=== PATIENT | female | born 1990 | race Caucasian/White ===

== ENCOUNTER 2018-07-01 14:55 | Emergency (ER) | payer BC, SELFPAY ==
[2018-07-01 15:11] VITALS: BP 128/84; PULSE 88; RESP 18; TEMP 36.9; O2SAT 98
--- NOTE | 2018-07-01 15:54 | W.ED.GENAD ---
Discharge Plan Disposition Patient Disposition: HOME Condition: Improving Discharge Details Chief Complaint: Headache Clinical Impression: Migraine Primary Care Provider: Miriam Krueger ED Provider: Gila Doshi Home Meds and New Rx's Prescriptions: Continued sumatriptan succinate [Imitrex] 100 mg tablet 100 mg PO PRN Qty: 10 RF: 6 pregabalin [Lyrica] 75 mg capsule 75 mg PO BID Qty: 60 RF: 3 dextroamphetamine-amphetamine [Adderall] 20 MG tablet 30 mg PO DAILY RF: 0 LOPRESSOR ER 200 mg PO DAILY RF: 0 venlafaxine [Effexor XR] 150 MG capsule,extended release 24hr 225 mg PO DAILY RF: 0 promethazine 50 MG tablet 50 mg PO Q6H PRN Qty: 30 RF: 0 ropinirole [Requip] 0.25 MG tablet 0.5 tab PO DAILY RF: 0 buspirone 15 MG tablet 15 mg PO BID RF: 0 Discharge Instructions Instructions: Migraine Headache (ED) Additional Instructions: Drink plenty of fluids and get plenty of rest. Follow-up with your neurologist in 1-2 weeks for reevaluation. Return immediately to the emergency department any worsening or new concerning symptoms. Discharge Data Discharge Physician: Gila Doshi Medical Decision Making 28-year-old female with a history of migraines who presented with migraine headache since 830 this morning. States feels like her usual headache. Positive vomiting and photophobia. Vitals within normal limits. Patient appears nontoxic. No focal deficits. Patient states Reglan, Phenergan or morphine work best for her migraine. Will place an IV, bolus IV fluids, Reglan, Benadryl and Toradol and will reassess. 1720 --patient states her headache improved somewhat but is now returning. We will give another liter IV fluids and a dose of morphine and reassess. 1800 --pt feels much better and is requesting to go home. Instructed to increase fluids, rest and follow-up with neurologist for reevaluation. She has an appointment with her neurologist next month. Patient was instructed to return here immediately with any worsening symptoms. Patient states she has plenty of her medications at home. HPI General Mode of arrival: ambulatory. Date/Time Provider Initiated Documentation: 07/01/18 15:16. Limitations to Documentation: no limitations. Information obtained by: patient. HPI Narrative: Patient is a 28-year-old female with a history of migraines who presents with a migraine headache since 830 this morning. Patient states the headache feels sharp, constant and throbbing and is her whole head. Patient states he feels consistent with her usual migraine. States she has been having nausea and vomiting all day long. Also admits to light sensitivity. Patient states she was diagnosed with migraines at age 3 and has had near daily headaches since then. States she occasionally has migraines which require her to come to the emergency department usually once yearly. Patient states she is followed by Dr. Mtz for her migraines. Patient states she took Phenergan at 1030 this morning without relief. Related Data Home Medications Medication Instructions Recorded Confirmed dextroamphetamine-amphetamine 30 mg PO DAILY tab-cap 10/24/14 06/07/17 [Adderall] Lopressor Er 200 mg PO DAILY 01/16/16 06/07/17 venlafaxine [Effexor XR] 225 mg PO DAILY tab-cap 09/07/16 06/07/17 promethazine 50 mg PO Q6H PRN #30 tab-cap 03/01/17 buspirone 15 mg PO BID 06/07/17 06/07/17 ropinirole [Requip] 0.5 tab PO DAILY 06/07/17 06/07/17 pregabalin 75 mg capsule 75 mg PO BID #60 tab-cap 06/15/18 06/15/18 sumatriptan 100 mg tablet 100 mg PO PRN #10 tab-cap 06/15/18 06/15/18 Previous Rx's Medication Instructions Recorded pregabalin 75 mg capsule 75 mg PO BID #60 tab-cap 06/15/18 sumatriptan 100 mg tablet 100 mg PO PRN #10 tab-cap 06/15/18 Allergies Allergy/AdvReac Type Severity Reaction Status Date / Time No Known Allergies Allergy Unverified 07/01/18 15:14 General Stated Complaint: Headache CLARISA: 3 Review of Systems Review of Systems All systems reviewed & are unremarkable except as noted in HPI and below Constitutional Reports as per HPI, Denies chills, Denies fever(s) and Reports headache(s) Eyes Denies blurry vision ENT Denies dizziness, Reports headache(s), Denies sore throat and Denies throat swelling Cardiovascular Denies chest pain and Denies dyspnea Respiratory Denies dyspnea Gastrointestinal Denies abdominal pain, Denies diarrhea and Reports vomiting Genitourinary Denies hematuria and Denies dysuria Musculoskeletal Denies back pain and Denies numbness Integumentary/Breasts Denies lesions and Denies rash Neurologic Denies dizziness, Reports headache(s) and Denies numbness Allergic/Immunologic Denies throat swelling [facility] Medical History ADHD (attention deficit hyperactivity disorder) Anxiety BMI 34.0-34.9,adult Chronic migraine Contraception Insomnia Migraine with aura and without status migrainosus, not intractable Tachycardia Tobacco use Family History Father No problems noted. Sister Anxiety Social History Smoking/Tobacco Use Status: Current every day alcohol intake: current alcohol intake frequency: holidays/special occasions only substance use type: does not use Exam Const General: cooperative, healthy appearing and no acute distress [facility] Head: normal to inspection Ears: hearing grossly normal bilaterally General nose exam: external nose normal Face and sinus: normal facial exam Mouth: oral mucosae normal Eyes General: appearance normal, both eyes and all related structures Pupils: PERRL EOM: EOM intact bilaterally Neck Neck: normal visual inspection and No submandibular swelling Lymphatic: no lymphadenopathy noted Chest Chest: normal inspection of the chest and no tenderness Resp Effort & Inspection: normal respiratory effort and able to speak in complete sentences Auscultation: clear to auscultation bilaterally Cardio Rate: regular rate Rhythm: regular rhythm GI Inspection: normal to inspection Palpation: soft, not firm, not rigid and nontender Auscultation: normal bowel sounds Skin General skin exam: no rashes or lesions noted Neuro General: alert, awake and oriented x3 Cranial Nerves: CN's II-XI intact bilaterally Cognition: normal cognition Speech: speech normal Motor: muscle tone normal throughout and strength 5/5 throughout Sensory Exam: no sensory deficits noted Extrem General: normal to inspection, full ROM, normal capillary refill and no edema Psych Appearance: grossly normal Mental Status: mental status grossly normal Speech and Movement: speech and movement normal Affect: normal affect Course Vital Signs Temperature 98.4 F 07/01/18 15:11 Pulse 88 07/01/18 15:11 Respiratory Rate 18 07/01/18 15:11 Blood Pressure 128/84 07/01/18 15:11 Pulse Oximetry 98 07/01/18 15:11 Temperature 98.4 F 07/01/18 15:11 Temperature Source Skin 07/01/18 15:11 Pulse 88 07/01/18 15:11 Respiratory Rate 18 07/01/18 15:11 Blood Pressure 128/84 07/01/18 15:11 Blood Pressure Position Sitting 07/01/18 15:11 Pulse Oximetry 98 07/01/18 15:11 Oxygen Delivery Method Room Air 07/01/18 15:11 Oxygen Flow Rate 0 07/01/18 15:11 Pain Level 9 07/01/18 15:11
[2018-07-01] MEDS: diphenhydrAMINE 50 MG/ML VIAL 25 MG IVP (16:10)
[2018-07-01] MEDS: Ketorolac 30 MG/ML VIAL IVP (16:10)
[2018-07-01] MEDS: Metoclopramide 10 MG/2 ML VIAL IVP (16:11)
[2018-07-01] MEDS: Normal Saline 1,000 ML 1000 ML IV ×2 (16:12→17:43)
--- NOTE | 2018-07-01 16:56 | NUR.NOTE ---
pt. resting with eyes closed, RR WNL, pt. states her pain is better, still hurts.
[2018-07-01 17:49] VITALS: BP 110/65; PULSE 78; RESP 18; O2SAT 100
[2018-07-01 18:06] VITALS: BP 103/68; PULSE 78; RESP 16; O2SAT 100
== END 2018-07-01 18:18 | disposition home or self-care (01) ==
PROVIDERS: Emergency Provider Physician Assistant; PCP Nurse Practitioner Family
DX: G43.909 Migraine, unspecified, not intractable, without status migrainosus (principal)
CPT/HCPCS: 81025; 96361; 96374; 96375; 99284; J1200; J1885; J2765

== ENCOUNTER 2018-12-27 14:15 | Outpatient (REF) | payer BC, SELFPAY ==
[2018-12-27 21:15] LABS: Abs Immature Grans 0.05 k/cumm (0.0-0.09); Absolute Basophil Count 0.04 k/cumm (0.0-0.2); Absolute Eosinophil Count 0.16 k/cumm (0.0-0.7); Absolute Lymphocyte Count 3.08 k/cumm (1.2-3.4); Absolute Monocyte Count 1.12 k/cumm (0.11-0.7); Absolute Neutrophil Count 8.87 k/cumm (1.2-6.7); Basophils % 0.3; Eosinophils % 1.2; HCT 45.5 % (36.0-46.0); HGB 15.4 g/dL (12.0-15.5); Immature Grans % 0.4; Lymphocytes % 23.1; Mean Corp. HGB Concentration 33.8 g/dL (32.0-36.0); Mean Corpuscular Volume 91.5 fL (80-95); Mean Platelet Volume 9.4 fL (8.0-11.0); Monocytes % 8.4; Neutrophils % 66.6; Platelet Count 441 x1000/uL (130-400); RBC 4.97 m/cumm (4.00-5.20); RBC Distribution Width 13.9 % (11.7-14.6); White Blood Cell Count 13.32 k/cumm (4.4-10.8)
== END 2018-12-27 14:35 ==
LOC: NCHCN 14:15
PROVIDERS: PCP Nurse Practitioner Family; Visit Provider Nurse Practitioner Family
DX: K30 Functional dyspepsia (principal); D72.829 Elevated white blood cell count, unspecified; J45.20 Mild intermittent asthma, uncomplicated; E23.6 Other disorders of pituitary gland; R00.0 Tachycardia, unspecified; F41.9 Anxiety disorder, unspecified; G43.909 Migraine, unspecified, not intractable, without status migrainosus; E66.9 Obesity, unspecified
CPT/HCPCS: 85025

== ENCOUNTER 2019-04-17 15:41 | Outpatient (REF) | payer BC, SELFPAY ==
[2019-04-17 21:10] LABS: Abs Immature Grans 0.02 k/cumm (0.0-0.09); Absolute Basophil Count 0.01 k/cumm (0.0-0.2); Absolute Eosinophil Count 0.17 k/cumm (0.0-0.7); Absolute Lymphocyte Count 2.62 k/cumm (1.2-3.4); Absolute Monocyte Count 0.75 k/cumm (0.11-0.7); Absolute Neutrophil Count 5.34 k/cumm (1.2-6.7); Basophils % 0.1; Eosinophils % 1.9; HCT 40.9 % (36.0-46.0); HGB 13.6 g/dL (12.0-15.5); Immature Grans % 0.2; Lymphocytes % 29.4; Mean Corp. HGB Concentration 33.3 g/dL (32.0-36.0); Mean Corpuscular Hemoglobin 30.8 pg (27.0-33.0); Mean Corpuscular Volume 92.7 fL (80-95); Mean Platelet Volume 9.6 fL (8.0-11.0); Monocytes % 8.4; Platelet Count 408 x1000/uL (130-400); RBC 4.41 m/cumm (4.00-5.20); RBC Distribution Width 12.9 % (11.7-14.6); White Blood Cell Count 8.91 k/cumm (4.4-10.8)
[2019-04-17 21:49] LABS: ALT 28 U/L (14-59); AST 15 U/L (15-37); Albumin 4.3 g/dL (3.4-5.0); Alkaline Phosphatase 100 U/L (46-116); BUN 10 mg/dL (7-18); Bilirubin, Total 0.3 mg/dL (0.2-1.0); CREATININE 0.75 mg/dL (0.55-1.02); Calcium 9.3 mg/dL (8.5-10.1); Chloride 101 mmol/L (98-107); Glucose 84 mg/dL (70-100); Magnesium 1.9 mg/dL (1.8-2.4); Potassium 4.3 mmol/L (3.5-5.1); Sodium 137 mmol/L (136-145); Total Protein 7.6 g/dL (6.4-8.2); Vitamin B12 700 pg/mL (193-986)
== END 2019-04-17 16:01 ==
LOC: NCHCN 15:41
PROVIDERS: PCP Nurse Practitioner Family; Visit Provider Nurse Practitioner Family
DX: K30 Functional dyspepsia (principal); D72.829 Elevated white blood cell count, unspecified; R00.0 Tachycardia, unspecified; F41.9 Anxiety disorder, unspecified; J45.20 Mild intermittent asthma, uncomplicated; E23.6 Other disorders of pituitary gland; G47.00 Insomnia, unspecified; E66.9 Obesity, unspecified
CPT/HCPCS: 80053; 82607; 83735; 85025

== ENCOUNTER 2020-01-23 19:17 | Outpatient (REF) | payer BC, SELFPAY ==
[2020-01-23 21:43] LABS: Abs Immature Grans 0.07 k/cumm (0.0-0.09); Absolute Basophil Count 0.03 k/cumm (0.0-0.2); Absolute Eosinophil Count 0.19 k/cumm (0.0-0.7); Absolute Lymphocyte Count 2.57 k/cumm (1.2-3.4); Absolute Monocyte Count 1.14 k/cumm (0.11-0.7); Absolute Neutrophil Count 10.77 k/cumm (1.2-6.7); Basophils % 0.2; Eosinophils % 1.3; HCT 39.1 % (36.0-46.0); HGB 12.9 g/dL (12.0-15.5); Immature Grans % 0.5 %; Lymphocytes % 17.4; Mean Corpuscular Hemoglobin 30.6 pg (27.0-33.0); Mean Corpuscular Volume 92.7 fL (80-95); Mean Platelet Volume 9.5 fL (8.0-11.0); Monocytes % 7.7; Neutrophils % 72.9; Platelet Count 411 x1000/uL (130-400); RBC 4.22 m/cumm (4.00-5.20); RBC Distribution Width 14.1 % (11.7-14.6); White Blood Cell Count 14.77 k/cumm (4.4-10.8)
[2020-01-23 22:08] LABS: Lithium 0.75 mmol/L (0.60-1.20)
[2020-01-23 22:24] LABS: Hemoglobin A1C 5.1 % (3.8-5.6)
[2020-01-23 22:31] LABS: ALT 27 U/L (14-59); AST 17 U/L (15-37); Albumin 4.1 g/dL (3.4-5.0); Alkaline Phosphatase 109 U/L (46-116); Anion Gap 11.1 mmol/L (3-11); BUN 15 mg/dL (7-18); Bilirubin, Total 0.4 mg/dL (0.2-1.0); CO2 23.9 mmol/L (21.0-32.0); CREATININE 0.78 mg/dL (0.55-1.02); Calcium 9.3 mg/dL (8.5-10.1); Calculated LDL 128 mg/dL (<100); Chloride 102 mmol/L (98-107); Cholesterol 232 mg/dL (<200); Glucose 87 mg/dL (74-106); HDL Cholesterol 49 mg/dL (40-60); Magnesium 2.5 mg/dL (1.8-2.4); Potassium 4.2 mmol/L (3.5-5.1); Sodium 137 mmol/L (136-145); Total Protein 7.2 g/dL (6.4-8.2); Triglyceride 276 mg/dL (<150); Vitamin B12 439 pg/mL (193-986)
[2020-01-23 23:19] LABS: FREE T4 0.85 ng/dL (0.76-1.46)
[2020-01-25 10:44] LABS: Hepatitis C Ab w Rflx HCV PCR Negative (Negative)
== END 2020-01-23 19:37 ==
LOC: NCHCN 19:17
PROVIDERS: PCP Nurse Practitioner Family; Visit Provider Nurse Practitioner Family
DX: F31.77 Bipolar disorder, in partial remission, most recent episode mixed (principal); F41.9 Anxiety disorder, unspecified; G43.909 Migraine, unspecified, not intractable, without status migrainosus; F17.210 Nicotine dependence, cigarettes, uncomplicated; K30 Functional dyspepsia; D72.829 Elevated white blood cell count, unspecified; Z51.81 Encounter for therapeutic drug level monitoring; J45.20 Mild intermittent asthma, uncomplicated; E23.6 Other disorders of pituitary gland; Z11.59 Encounter for screening for other viral diseases
CPT/HCPCS: 80053; 80061; 86803; 80178; 82607; 83036; 83735; 84439; 84443; 85025

== ENCOUNTER 2020-04-11 13:13 | Outpatient (REF) | payer BC, SELFPAY ==
[2020-04-11 21:17] LABS: TSH 2.09 uIU/mL (0.36-3.74)
[2020-04-11 21:18] LABS: Lithium 0.67 mmol/L (0.60-1.20)
== END 2020-04-11 13:33 ==
LOC: NCHCN 13:13
PROVIDERS: PCP Nurse Practitioner Family; Visit Provider Nurse Practitioner Family
DX: F31.62 Bipolar disorder, current episode mixed, moderate (principal); F51.05 Insomnia due to other mental disorder; F43.10 Post-traumatic stress disorder, unspecified; Z51.81 Encounter for therapeutic drug level monitoring; R79.89 Other specified abnormal findings of blood chemistry
CPT/HCPCS: 80178; 84443

== ENCOUNTER 2021-02-24 13:02 | Outpatient (REF) | payer OTHER, SELFPAY ==
--- NOTE | 2021-02-24 12:15 | PAPFT_PTH ---
PATIENT: Danielle Vera LOC: [facility]#:[id number] AGE/SX: 30/F ROOM: RE02/24/[address]: Miriam Krueger : 1990 BED: DIS: 02/24/2021 SPEC #: [id number] RECD: 02/25/21 12:55 STATUS: [facility] VITAL #: [id number] ESTEVAN: 02/24/21 12:[address]: Miriam Krueger DEPT: [facility] Cytology RECD BY: Steph Jaramillo Tissues: 1 - CX/ENDOCX FOR PAP SMEARS Procedures: PAP THIN PREP/UVM Screening HPV DNA PROBE Comments: [id number] (CHLAMYDIA/GC)
[2021-02-24 21:25] LABS: Abs Immature Grans 0.01 10^3/uL (0.0-0.06); Absolute Basophil Count 0.04 10^3/uL (0.0-0.2); Absolute Eosinophil Count 0.15 10^3/uL (0.0-0.7); Absolute Lymphocyte Count 2.45 10^3/uL (1.2-3.4); Absolute Monocyte Count 0.51 10^3/uL (0.1-0.8); Absolute Neutrophil Count 3.07 10^3/uL (1.2-6.7); Basophils % 0.6; Eosinophils % 2.4; HCT 39.8 % (36.0-46.0); HGB 13.2 g/dL (11.2-15.7); Immature Grans % 0.2; Lymphocytes % 39.3; MCH 30.3 pg (27.0-33.0); MCHC 33.2 % (32.0-36.0); MCV 91.3 fL (80-95); Monocytes % 8.2; Neutrophils % 49.3; Nucleated RBC 0 %; Platelet Count 350 10^3/uL (130-400); RBC 4.36 10^6/uL (3.93-5.22); RDW 13.3 % (11.7-14.6); RDW-SD 45.1 fL; WBC 6.23 10^3/uL (4.4-10.8)
[2021-02-24 21:38] LABS: Hemoglobin A1C 5.5 % (<5.7)
[2021-02-24 21:48] LABS: Magnesium 2.1 mg/dL (1.8-2.4); TSH (W/Ref FT4) 0.53 uIU/mL (0.36-3.74)
[2021-02-26 10:14] LABS: HIV-1/2 Ag & Ab Screen Negative (Negative)
[2021-02-26 11:16] LABS: Syphilis Serology (RPR) Negative (Negative)
[2021-02-26 15:22] LABS: Chlamydia Result Negative (Negative); GC Result Negative (Negative)
== END 2021-02-24 13:03 | disposition home or self-care (01) ==
LOC: NCHCN 13:02
PROVIDERS: PCP Nurse Practitioner Family; Visit Provider Nurse Practitioner Family
DX: Z00.00 Encounter for general adult medical examination without abnormal findings (principal); Z12.4 Encounter for screening for malignant neoplasm of cervix; Z01.419 Encounter for gynecological examination (general) (routine) without abnormal findings; Z11.51 Encounter for screening for human papillomavirus (HPV); E78.5 Hyperlipidemia, unspecified; D72.829 Elevated white blood cell count, unspecified; K30 Functional dyspepsia; F31.62 Bipolar disorder, current episode mixed, moderate; E66.9 Obesity, unspecified; E23.6 Other disorders of pituitary gland; Z11.4 Encounter for screening for human immunodeficiency virus [HIV]
CPT/HCPCS: 87389; 87491; 87591; 88142; 83036; 83735; 84443; 85025; 86592; 87624

== ENCOUNTER 2021-06-04 05:06 | Emergency (ER) | payer OTHER, SELFPAY ==
[2021-06-04] VITALS (20 sets, daily range): BP systolic 102–139; BP diastolic 49–93; PULSE 69–200; RESP 18–42; TEMP 36.6; O2SAT 96–100
--- NOTE | 2021-06-04 05:15 | RT.EKG_ITS ---
APPROVED REPORT Exam: Resting ECG Reason for Exam: sob Patient Location: E HR:95 bpm ECG Measurements Heart Rate 95 AXIS HI [id number] P [id number] QRSd 89 QRS 72 QT 370 T 44 QTc 466 Conclusion Atrial flutter...A-rate 238 Physician: Sinus tach, no stemi, no delta wave, no significant st elevation or depression
--- NOTE | 2021-06-04 05:16 | W.ED.GENAD ---
Discharge Plan Disposition Patient Disposition: HOME Condition: Good Discharge Details Clinical Impression: Tachycardia, Pneumonia, Cough Primary Care Provider: Miriam Krueger ED Provider: Williams Santana Home Meds and New Rx's Prescriptions: New benzonatate 100 mg capsule 100 mg PO TID Qty: 30 RF: 0 doxycycline hyclate 100 mg tablet 100 mg PO BID Qty: 20 RF: 0 Continued magnesium chloride 64 mg tablet extended release 128 mg PO BID RF: 0 lithium carbonate 300 mg capsule 300 mg PO QHS RF: 0 levothyroxine [Synthroid] 25 mcg tablet 12.5 mcg PO DAILY RF: 0 quetiapine [Seroquel] 400 mg tablet 400 mg PO QHS RF: 0 promethazine 50 mg tablet 50 mg PO Q6H PRN Qty: 30 RF: 3 lithium carbonate 450 mg tablet extended release 1,350 mg PO DAILY RF: 0 dextroamphetamine-amphetamine [Adderall] 20 MG tablet 30 mg PO DAILY RF: 0 venlafaxine [Effexor XR] 150 mg capsule,extended release 24hr 225 mg PO DAILY RF: 0 LOPRESSOR ER 300 mg PO DAILY RF: 0 sumatriptan succinate [Imitrex] 100 mg tablet 100 mg PO PRN Qty: 10 RF: 6 Emgality Pen 120 mg/mL pen injector 120 mg subcut ONCE Qty: 1 RF: 11 buspirone 15 MG tablet 15 mg PO BID RF: 0 Discharge Instructions Instructions: Pneumonia (ED), Acute Cough (ED) Additional Instructions: At this time your chest x-ray does show evidence of early mild pneumonia. Your Covid test is negative. Your flu test was negative. Please take the antibiotic as directed. Addition sent to your pharmacy on [facility]. Please also take the cough medication as prescribed. It has also been sent to your pharmacy. If you notice any worsening of your symptoms, or any new symptoms such as vomiting, diarrhea, fever, chills, shortness of breath, chest pain, numbness, weakness, or fainting , please return immediately to the emergency department for reevaluation. Please follow up with your primary care provider as soon as possible for reassessment and reevaluation. As always, it was a pleasure participating in your medical care today. 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 Patient states that for the last 2 to 3 days she has had mild cough, fever, chills, runny nose and congestion. Over the last 12 to 24 hours she has had increased difficulty breathing, shortness of breath, mild chest pain. She has taken her inhalers but this is not improved her symptoms. She has missed her last few doses of her beta-ana. She has received the Covid vaccine. She denies any recent long trips, surgeries or procedures. She denies any estrogen use. No personal or family history of blood clots. No other complaints at this time. No other modifying factors. Physical exam demonstrates a notably anxious appearing female, notably tachypneic with excellent oxygen saturation and clear lungs. There is perhaps a very minimal wheeze the left lower lung field, however otherwise appears notably unremarkable S rotation. I do suspect that the patient has a viral upper respiratory infection subsequently causing the cough, fever, and congestion he had perhaps exacerbating her illness related to asthma. However with the patient's tachycardia and chest pain cardiac etiology and PE are also differential. As she is low risk we will get a D-dimer, will rehydrate, give breathing treatments, evaluate for concerning cardiac etiologies, check for Covid, monitor closely and reassess. 7:21 AM Patient's laboratory work-up has returned, patient's troponin is normal, mild white count at 13. D-dimer is normal, electrolytes normal, mild anion gap. TSH is slightly elevated but free T4 is normal. Covid test and flu test are both negative. Chest x-ray shows evidence concerning for mild early pneumonia. Patient's cough is improved with cough suppressant. Patient is feeling better. Patient's heart rate has remained elevated but she did not take her 300 mg of Lopressor this morning. She states that elevated heart rate is very normal for her she misses her medication. We will give her her morning dose now. With the D-dimer negative, patient not on any exogenous estrogen, her symptoms appear consistent with PE. Patient tachycardia is chronic and not acute (patient states her normal ranges 120-160), blood pressure notably stable. Patient will be discharged home with doxycycline and Tessalon Perles. I have extensively reviewed the treatment plan and discharge instructions with the patient. I have addressed all patient concerns at this time. The patient was made aware of what symptoms to monitor for that would warrant a return to the emergency department. Discussed the plan with the patient, they demonstrate verbal understanding and agreement with our assessment and plan at this time. The documentation in this chart was dictated using [employer] dictation software. Please excuse any dictation errors. FINDINGS: Lungs: Slightly heterogeneous pulmonary attenuation may reflect overlying soft tissues, atelectasis, pneumonia or a combination. CT could be performed as needed for more accurate characterization. Pleural spaces: Unremarkable. No pleural effusion. No pneumothorax. Heart/Mediastinum: Unremarkable. No cardiomegaly. Bones/joints: Unremarkable. IMPRESSION: Slightly heterogeneous pulmonary attenuation may reflect overlying soft tissues, atelectasis, pneumonia or a combination. CT could be performed as needed for more accurate characterization. Thank you for allowing us to participate in the care of your patient. Dictated and Authenticated by: Gil Cardenas MD 06/04/2021 7:00 AM Eastern Time ([place] & [place]) HPI General Date/Time Provider Initiated Documentation: 06/04/21 05:07. 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 Patient states that for the last 2 to 3 days she has had mild cough, fever, chills, runny nose and congestion. Over the last 12 to 24 hours she has had increased difficulty breathing, shortness of breath, mild chest pain. She has taken her inhalers but this is not improved her symptoms. She has missed her last few doses of her beta-ana. She has received the Covid vaccine. She denies any recent long trips, surgeries or procedures. She denies any estrogen use. No personal or family history of blood clots. No other complaints at this time. No other modifying factors. Related Data Home Medications Medication Instructions Recorded Confirmed dextroamphetamine-amphetamine 30 mg PO DAILY tab-cap 10/24/14 06/04/21 [Adderall] buspirone 15 mg PO BID 06/07/17 06/04/21 LOPRESSOR ER 300 mg PO DAILY 08/15/18 06/04/21 magnesium chloride 64 mg 128 mg PO BID tab 08/15/18 06/04/21 tablet,extended release venlafaxine 150 mg 225 mg PO DAILY tab-cap 08/15/18 06/04/21 capsule,extended release 24 hr levothyroxine 25 mcg tablet 12.5 mcg PO DAILY tab 03/21/20 06/04/21 lithium carbonate 300 mg capsule 300 mg PO QHS 03/21/20 12/02/20 quetiapine 400 mg tablet 400 mg PO QHS tab 03/21/20 06/04/21 lithium carbonate 450 mg 1,350 mg PO DAILY tab 12/02/20 12/02/20 tablet,extended release sumatriptan succinate 100 mg tablet 100 mg PO PRN #10 tab-cap 01/21/21 06/04/21 promethazine 50 mg tablet 50 mg PO Q6H PRN #30 tab-cap 02/10/21 06/04/21 galcanezumab-gnlm 120 mg/mL 120 mg SUBCUT ONCE #1 ml 04/17/21 06/04/21 subcutaneous pen injector benzonatate 100 mg PO TID #30 cap 06/04/21 doxycycline hyclate 100 mg PO BID #20 tab 06/04/21 Previous Rx's Medication Instructions Recorded sumatriptan succinate 100 mg tablet 100 mg PO PRN #10 tab-cap 01/21/21 promethazine 50 mg tablet 50 mg PO Q6H PRN #30 tab-cap 02/10/21 galcanezumab-gnlm 120 mg/mL 120 mg SUBCUT ONCE #1 ml 04/17/21 subcutaneous pen injector benzonatate 100 mg PO TID #30 cap 06/04/21 doxycycline hyclate 100 mg PO BID #20 tab 06/04/21 Allergies Allergy/AdvReac Type Severity Reaction Status Date / Time No Known Allergies Allergy Unverified 02/10/21 09:39 General Stated Complaint: SOB CLARISA: 3 Review of Systems All systems reviewed & are unremarkable except as noted in HPI and below PFSH Active Problem List PTSD (post-traumatic stress disorder) (Acute) Anxiety (Acute 11/06/15) Attention deficit hyperactivity disorder (ADHD), predominantly inattentive type (Acute 11/06/15) BMI 34.0-34.9,adult (Acute 11/06/15) Chronic migraine (Acute 01/22/15) Encounter for contraceptive management, unspecified (Acute 11/06/15) Insomnia, unspecified (Acute 11/06/15) Migraine headache with aura (Acute 01/22/15) Migraine headache without aura (Acute 01/22/15) Tachycardia (Acute 11/06/15) Medical History ADHD (attention deficit hyperactivity disorder) managed by PCP. Anxiety Bipolar disorder BMI 34.0-34.9,adult wt secondary to Depo Provera. Chronic migraine Contraception Not a candidate for Estrogen containing OCPs. Gained wt on Depo Provera. BTB on Norethindrone. Intoleranct of Mirena. 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 Migraine with aura and without status migrainosus, not intractable Tachycardia Tobacco use Family History Father No problems noted. Sister Anxiety Social History Smoking/Tobacco Use Status: Current every day Smoking risk assessment performed?: Yes Alcohol Intake: current Alcohol Intake frequency: holidays/special occasions only Drug use: Never Substance use type: does not use Do you feel safe in your relationship?: Yes Exam Narrative Exam Narrative: 1.Const: Well-nourished, Well-developed, appearing stated age 2.Eyes: PERRL, no conjunctival injection, and symmetrical lids. 3.ENT: Atraumatic external nose and ears. Moist MM. Neck: Symmetric, trachea midline, No thyromegaly. 4.CVS: +S1/S2, No murmurs or gallops. Peripheral pulses 2+ and equal in all extremities. Brisk capillary refill in all extremities. 5.RESP: No tachypnea however she otherwise demonstrate unlabored respiratory effort. Clear to auscultation bilaterally. No wheezes rales or rhonchi 6.GI: Soft, Nontender/Nondistended, No hepatosplenomegaly. No guarding or rebound. 7.MSK: Normocephalic/Atraumatic, Extremities w/o deformity or ttp No cyanosis or clubbing, Normal movement of all extremities 8.Skin: Warm, Dry. No rashes or lesions. 9.Neuro: care mgr II-XII grossly intact. Sensation grossly intact, no focal neurologic deficits. 10.Psych: (AAO) x3. Notably anxious Course Vital Signs Vital signs: Vital Signs Temperature 36.6 C 06/04/21 05:11 Pulse 130 H 06/04/21 05:11 Respiratory Rate 20 06/04/21 05:11 Blood Pressure 136/93 H 06/04/21 05:11 Pulse Oximetry 99 06/04/21 05:11 Temperature 36.6 C 06/04/21 05:11 Temperature Source Tympanic 06/04/21 05:11 Pulse 130 H 06/04/21 05:11 Respiratory Rate 20 06/04/21 05:11 Blood Pressure 136/93 H 06/04/21 05:11 Blood Pressure Position Sitting 06/04/21 05:11 Pulse Oximetry 99 06/04/21 05:11 Oxygen Delivery Method Room Air 06/04/21 05:11 Oxygen Flow Rate 0 06/04/21 05:11 Pain Level 4 06/04/21 05:11
[2021-06-04] MEDS: Albuterol/Ipratropium 3 ML UPD VIAL 6 ML UPD (05:55)
[2021-06-04] MEDS: LORazepam 2 MG/ML VIAL 0.5 MG IVP (05:55)
[2021-06-04] MEDS: Normal Saline 1,000 ML 1000 ML IV (05:56)
[2021-06-04 05:58] LABS: Abs Immature Grans 0.06 10^3/uL (0.0-0.06); Absolute Eosinophil Count 0.13 10^3/uL (0.0-0.7); Absolute Monocyte Count 0.82 10^3/uL (0.1-0.8); Basophils % 0.5; HCT 41.5 % (36.0-46.0); HGB 14.2 g/dL (11.2-15.7); Immature Grans % 0.5; Lymphocytes % 23.5; MCH 30.7 pg (27.0-33.0); MCHC 34.2 % (32.0-36.0); MCV 89.6 fL (80-95); MPV 9.2 fL (8.0-11.0); Monocytes % 6.2; Neutrophils % 68.3; Nucleated RBC 0 %; Platelet Count 398 10^3/uL (130-400); RBC 4.63 10^6/uL (3.93-5.22); RDW 13.3 % (11.7-14.6); RDW-SD 43.7 fL; WBC 13.18 10^3/uL (4.4-10.8)
[2021-06-04 05:59] LABS: Absolute Basophil Count 0.07 10^3/uL (0.0-0.2)
[2021-06-04 06:21] LABS: ALT 23 U/L (14-59); AST 8 U/L (15-37); Albumin 4.2 g/dL (3.4-5.0); Alkaline Phosphatase 134 U/L (46-116); Anion Gap 14.8 mmol/L (3-11); BUN 13 mg/dL (7-18); Bilirubin, Total 0.3 mg/dL (0.2-1.0); CO2 22.2 mmol/L (21.0-32.0); CREATININE 0.9 mg/dL (0.55-1.02); Calcium 9.6 mg/dL (8.5-10.1); Chloride 103 mmol/L (98-107); Glucose 111 mg/dL (74-106); Lipase 94 U/L (73-393); Sodium 140 mmol/L (136-145); Total Protein 8.3 g/dL (6.4-8.2)
[2021-06-04 06:22] LABS: Troponin I < 0.05 ng/mL (<0.06)
[2021-06-04 06:28] LABS: D-Dimer 291 ng/mlFEU (<500)
--- NOTE | 2021-06-04 06:30 | DI.RAD_ITS ---
Exam(s) XR PORTABLE CHEST AP EXAM: XR PORTABLE CHEST AP CLINICAL HISTORY: cough, sob TECHNIQUE: COMPARISON: No exams were available for comparison FINDINGS: Portable AP chest at 0650 hours. Lungs appear grossly clear, however there is some obscuration of th e diaphragm on the. No prior films available comparison. PA and lateral chest suggested for further evaluation to evaluate the left lower lobe and exclude consolidation. No pleural effusion. Cardiac size within limits. IMPRESSION: Obscuration of diaphragm on left, PA and lateral chest suggested for further evaluation. RADIATION DOSE DELIVERED: Total DLP
[2021-06-04 06:37] LABS: FREE T4 0.85 ng/dL (0.76-1.46)
[2021-06-04 06:38] LABS: COVID-19 PCR Negative (Negative)
[2021-06-04] MEDS: Ondansetron 4 MG/2 ML VIAL IVP (06:38)
--- NOTE | 2021-06-04 07:00 | DI.VRAD_ITS ---
PROCEDURE INFORMATION: Exam: XR Chest Exam date and time: 06/04/2021 6:31 AM Age: 31 years old Clinical indication: Cough and shortness of breath; Patient HX: Cough, SOB TECHNIQUE: Imaging protocol: XR of the chest. Views: 1 view. COMPARISON: No relevant prior studies available. FINDINGS: Lungs: Slightly heterogeneous pulmonary attenuation may reflect overlying soft tissues, atelectasis, pneumonia or a combination. CT could be performed as needed for more accurate characterization. Pleural spaces: Unremarkable. No pleural effusion. No pneumothorax. Heart/Mediastinum: Unremarkable. No cardiomegaly. Bones/joints: Unremarkable. IMPRESSION: Slightly heterogeneous pulmonary attenuation may reflect overlying soft tissues, atelectasis, pneumonia or a combination. CT could be performed as needed for more accurate characterization. Dictated and Authenticated by: Gil Cardenas MD. Ordering:ZACHARY Kramer MD
[2021-06-04] MEDS: Benzonatate 100 MG CAP PO (07:03)
[2021-06-04] MEDS: Metoprolol CR 50 MG TABCR 300 MG PO (07:04)
== END 2021-06-04 07:53 | disposition home or self-care (01) ==
PROVIDERS: Emergency Provider Student in an Organized Health Care Education/Training Program; PCP Nurse Practitioner Family
DX: J18.9 Pneumonia, unspecified organism (principal); R00.0 Tachycardia, unspecified; R05.1 Acute cough; F17.210 Nicotine dependence, cigarettes, uncomplicated
CPT/HCPCS: 80053; 83690; 87449; 87635; 93005; 96361; 96374; 96375; 99284; 71045; 84439; 84443; 84484; 85025; 85379; 93010; J2060; J2405; J7620

== ENCOUNTER 2021-09-01 15:11 | Outpatient (REF) | payer OTHER, SELFPAY ==
[2021-09-01 21:09] LABS: TSH (W/Ref FT4) 3.59 uIU/mL (0.36-3.74)
== END 2021-09-01 15:12 | disposition home or self-care (01) ==
LOC: NCHCN 15:11
PROVIDERS: PCP Nurse Practitioner Family; Visit Provider Nurse Practitioner Family
DX: E04.9 Nontoxic goiter, unspecified (principal); E78.5 Hyperlipidemia, unspecified
CPT/HCPCS: 84443

== ENCOUNTER 2021-12-30 04:38 | Emergency (ER) | payer OTHER, SELFPAY ==
--- NOTE | 2021-12-30 04:41 | W.ED.GENAD ---
Discharge Plan Disposition Patient Disposition: HOME Condition: Improving Discharge Details Clinical Impression: Headache, migraine Primary Care Provider: Miriam Krueger ED Provider: Virgilio [facility] Meds and New Rx's Prescriptions: Continued magnesium chloride 64 mg tablet extended release 128 mg PO BID lithium carbonate 300 mg capsule 300 mg PO QHS levothyroxine [Synthroid] 25 mcg tablet 12.5 mcg PO DAILY quetiapine [Seroquel] 400 mg tablet 400 mg PO QHS promethazine 50 mg tablet 50 mg PO Q6H PRN Qty: 30 3RF Rx Instructions: Take PRN for nausea and headaches dextroamphetamine-amphetamine [Adderall] 20 MG tablet 30 mg PO DAILY venlafaxine [Effexor XR] 150 mg capsule,extended release 24hr 225 mg PO DAILY LOPRESSOR ER 300 mg PO DAILY Label Comments: 11/03/16 per pt. takes 300 mg qd. Emgality Pen 120 mg/mL pen injector 120 mg subcut ONCE Qty: 1 11RF buspirone 15 MG tablet 15 mg PO BID Label Comments: 11/30/17 PER PT. TAKES 30-45 MG QD. CANNOT REMEMBER. Ubrelvy 100 mg tablet 1 tab PO BID PRN (Reason: Migraine Headache) Discharge Instructions Instructions: General Headache (ED) Additional Instructions: Home to rest for today. Drink plenty of fluids. Resume previous medications. Follow-up with primary care end of week if not improved. Return to ED for new or worsening headache, neurologic change, persistent vomiting, difficulty breathing, other concerns. Medical Decision Making Patient presenting with migraine headache and associated nausea and vomiting. Headache no different than previous migraines and no neurologic symptoms. Nausea and vomiting has been persistent. COVID-positive a few weeks ago and recurrent fever yesterday. Could not concern regarding meningitis. She looks anxious but does have history of ADD, bipolar, restless leg. We will treat with fluids, Compazine, ketorolac and check basic labs. Laboratory studies look okay. Patient reports no significant improvement with Toradol and Compazine. Patient and mother report that typically requires morphine if headache is bad enough to make her come to ED. Patient given 4 mg of morphine and on reevaluation reports improved headache and requesting discharge home. Follow-up with primary care as needed. Return precautions provided. Lab Data Lab results reviewed: Yes I reviewed the patient's lab results. HPI General Mode of arrival: ambulatory. Date/Time Provider Initiated Documentation: 12/30/21 04:41. Limitations to Documentation: no limitations. Information obtained by: patient and RN notes reviewed. HPI Narrative: Patient presents to ED with complaint of migraine headache. Patient reports headache similar to previous migraines. Not responding to home medications. Has nausea and vomiting which has been persistent and is not like typical migraines. Denies any abdominal pain. Was COVID-positive a few weeks ago. Recurrent fever and not feeling well yesterday. No cough, sore throat, shortness of breath, chest pain currently. No neurologic changes. Feels hot and sweaty on and off but no fever since yesterday. Related Data Home Medications Medication Instructions Recorded Confirmed dextroamphetamine-amphetamine 20 30 mg PO DAILY 10/24/14 12/30/21 mg tablet (Adderall) buspirone 15 mg tablet 15 mg PO BID 06/07/17 12/30/21 LOPRESSOR ER 300 mg PO DAILY 08/15/18 12/30/21 magnesium chloride 64 mg 128 mg PO BID 08/15/18 12/30/21 tablet,extended release venlafaxine 150 mg 225 mg PO DAILY 08/15/18 12/30/21 capsule,extended release 24 hr (Effexor XR) levothyroxine 25 mcg tablet 12.5 mcg PO DAILY 03/21/20 12/30/21 (Synthroid) lithium carbonate 300 mg capsule 300 mg PO QHS 03/21/20 12/30/21 quetiapine 400 mg tablet (Seroquel) 400 mg PO QHS 03/21/20 12/30/21 promethazine 50 mg tablet 50 mg PO Q6H PRN #30 tab-caps 02/10/21 12/30/21 galcanezumab-gnlm 120 mg/mL 120 mg subcut ONCE #1 mL 04/17/21 12/30/21 subcutaneous pen injector (Emgality Pen) ubrogepant 100 mg tablet (Ubrelvy) 1 tab PO BID PRN Migraine Headache 12/30/21 12/30/21 Previous Rx's Medication Instructions Recorded promethazine 50 mg tablet 50 mg PO Q6H PRN #30 tab-caps 02/10/21 galcanezumab-gnlm 120 mg/mL 120 mg subcut ONCE #1 mL 04/17/21 subcutaneous pen injector (Emgality Pen) Allergies Allergy/AdvReac Type Severity Reaction Status Date / Time No Known Allergies Allergy Unverified 12/30/21 04:48 General CLARISA: 3 Review of Systems Narrative: 11/29 Review of Systems completed and is negative except as stated above in HPI (Systems reviewed: Const, Resp, CV, GI, Neuro) PFSH All Active Problems (Updated 12/30/21 @ 06:53 by Virgilio Richard MD) Headache, migraine (Chronic) Pneumonia (Acute) Cough (Acute) PTSD (post-traumatic stress disorder) (Acute) Anxiety (Acute 11/06/15) Attention deficit hyperactivity disorder (ADHD), predominantly inattentive type (Acute 11/06/15) BMI 34.0-34.9,adult (Acute 11/06/15) Chronic migraine (Acute 01/22/15) Encounter for contraceptive management, unspecified (Acute 11/06/15) Insomnia, unspecified (Acute 11/06/15) Migraine headache with aura (Acute 01/22/15) Migraine headache without aura (Acute 01/22/15) Tachycardia (Acute 11/06/15) Medical History (Updated 12/30/21 @ 06:53 by Virgilio Richard MD) ADHD (attention deficit hyperactivity disorder) managed by PCP. Anxiety Bipolar disorder BMI 34.0-34.9,adult wt secondary to Depo Provera. Chronic migraine Contraception Not a candidate for Estrogen containing OCPs. Gained wt on Depo Provera. BTB on Norethindrone. Intoleranct of Mirena. 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 Tobacco use Family History Father No problems noted. Sister Anxiety Social History Smoking/Tobacco Use Status: Current-Occasional Tobacco Type: cigarettes Smoking risk assessment performed?: Yes Alcohol Intake: current Alcohol Intake frequency: holidays/special occasions only Drug use: Never Substance use type: does not use Do you feel safe at home: Yes Do you feel safe in your relationship?: Yes Exam Narrative Exam Narrative: Const: Obese female in NAD but anxious HEENT: NC/AT. Normal facial exam. Eyes: Normal conjunctiva and sclera. PERRL and EOMI Neck: Supple. Trachea midline. Lungs: Normal respiratory effort. Lungs are clear. Cor: RRR without murmur/gallop. Good radial pulses. GI: Soft. ND Neuro: A+O x 3. Normal speech, mentation, gait. Cranial nerves II - XII grossly intact. No gross motor or sensory deficit. Ext: No C/C/E. Skin: Warm and dry without rash.
[2021-12-30 04:42] VITALS: BP 110/78; PULSE 92; RESP 22; TEMP 37.1; O2SAT 99
[2021-12-30 05:12] LABS: Abs Immature Grans 0.02 10^3/uL (0.0-0.06); Absolute Basophil Count 0.04 10^3/uL (0.0-0.2); Absolute Eosinophil Count 0.02 10^3/uL (0.0-0.7); Absolute Lymphocyte Count 0.57 10^3/uL (1.2-3.4); Absolute Monocyte Count 0.87 10^3/uL (0.1-0.8); Basophils % 0.7; Eosinophils % 0.3; HGB 13.4 g/dL (11.2-15.7); Immature Grans % 0.3; Lymphocytes % 9.6; MCH 29.8 pg (27.0-33.0); MCHC 33.5 % (32.0-36.0); MCV 89 fL (80-95); MPV 9.2 fL (8.0-11.0); Monocytes % 14.7; Neutrophils % 74.4; Platelet Count 352 10^3/uL (130-400); RDW 13.2 % (11.7-14.6); RDW-SD 42.8 fL; WBC 5.92 10^3/uL (4.4-10.8)
[2021-12-30 05:25] LABS: ALT 26 U/L (14-59); AST 34 U/L (15-37); Albumin 4.4 g/dL (3.4-5.0); Alkaline Phosphatase 106 U/L (46-116); Anion Gap 14.3 mmol/L (3-11); BUN 14 mg/dL (7-18); Bilirubin, Total 0.3 mg/dL (0.2-1.0); CO2 22.7 mmol/L (21.0-32.0); CREATININE 0.8 mg/dL (0.55-1.02); Calcium 9.5 mg/dL (8.5-10.1); Chloride 99 mmol/L (98-107); Glucose 129 mg/dL (74-106); Potassium 3.7 mmol/L (3.5-5.1); Sodium 136 mmol/L (136-145); Total Protein 8.4 g/dL (6.4-8.2)
[2021-12-30] MEDS: Ketorolac 30 MG/ML VIAL IVP (05:28)
[2021-12-30] MEDS: Normal Saline 1,000 ML 1000 ML IV (05:28)
[2021-12-30] MEDS: Prochlorperazine 10 MG/2 ML VIAL IVP (05:28)
[2021-12-30] MEDS: MORPHine 4 MG/ML SYR IVP (06:16)
[2021-12-30 07:14] VITALS: BP 125/76; PULSE 106; TEMP 38.1; O2SAT 100
[2021-12-30 07:23] VITALS: BP 125/76; PULSE 106; RESP 16; TEMP 38.1; O2SAT 100
== END 2021-12-30 07:20 | disposition home or self-care (01) ==
PROVIDERS: Emergency Provider Emergency Medicine; PCP Nurse Practitioner Family
DX: G43.909 Migraine, unspecified, not intractable, without status migrainosus (principal); Z86.16 Personal history of COVID-19
CPT/HCPCS: 80053; 96361; 96374; 96375; 99284; 85025; 99283; J0780; J1885; J2270

== ENCOUNTER 2023-01-04 06:49 | Emergency (ER) | payer OTHER, SELFPAY ==
[2023-01-04] VITALS (20 sets, daily range): BP systolic 91–127; BP diastolic 35–96; PULSE 84–126; RESP 4–28; TEMP 37.1; O2SAT 88–99
--- NOTE | 2023-01-04 07:23 | ED.GENADUL_ITS ---
Discharge Plan Disposition Patient Disposition: Home Condition: Stable Discharge Details Clinical Impression: Cough Primary Care Provider: Miriam Krueger ED Provider: Sb Morton Home Meds and New Rx's Prescriptions: New benzonatate 200 mg capsule 200 mg PO TID PRN (Reason: cough) Qty: 9 0RF prednisone 20 mg tablet 60 mg PO DAILY 4 Days Qty: 12 0RF doxycycline hyclate 100 mg tablet 100 mg PO BID Qty: 14 0RF Continued magnesium chloride 64 mg tablet extended release 128 mg PO BID levothyroxine [Synthroid] 25 mcg tablet 50 mcg PO DAILY quetiapine [Seroquel] 400 mg tablet 800 mg PO QHS promethazine 50 mg tablet 50 mg PO Q6H PRN Qty: 30 3RF Rx Instructions: Take PRN for nausea and headaches dextroamphetamine-amphetamine [Adderall] 20 MG tablet 30 mg PO DAILY venlafaxine [Effexor XR] 150 mg capsule,extended release 24hr 75 mg PO DAILY LOPRESSOR ER 300 mg PO DAILY Patient Comments: 11/03/16 per pt. takes 300 mg qd. buspirone 15 MG tablet 15 mg PO BID Patient Comments: 11/30/17 PER PT. TAKES 30-45 MG QD. CANNOT REMEMBER. sumatriptan succinate 100 mg tablet See Rx Instructions .ROUTE .COMPLEX PRN Rx Instructions: Take 1 tab at the onset of a migraine, can repeat in 2 hours, max of 2 tabs in 24 hours. Do not exceed 2 days per week prazosin 1 mg capsule 3 mg PO .QHS Patient Comments: 1 1 capsule by mouth at bedtime for nightmares. can increase to two capsule if tolerated. omeprazole 40 mg capsule,delayed release(DR/EC) 40 mg PO DAILY Patient Comments: TAKE ONE CAPSULE BY MOUTH EVERY DAY lamotrigine 25 mg tablet 100 mg PO DAILY Patient Comments: 2 tabs once a day buspirone 10 mg tablet 10 mg PO DAILY Vyepti 100 mg/mL Solution 300 mg IV .Q3 MONTHS albuterol sulfate 90 mcg/actuation HFA aerosol inhaler 2 puff INHALATION PRN PRN Discharge Instructions Instructions: Acute Cough (ED) Additional Instructions: continue to use your inhalers as needed follow up with your primary care provider within 1 week especially if symptoms continue if you feel more ill, have severe pain or worsening shortness of breath return to the emergency department Discharge Data Discharge Date/Time-TO BE ENTERED AT DEPARTURE: 01/04/23 10:36 Medical Decision Making ECG Data Attestation: I personally reviewed and interpreted this ECG (s) as follows: (ST 110, no ST T changes, nl intervals) HPI General Date/Time Provider Initiated Documentation: 01/04/23 07:17 . HPI Narrative: This 32-year-old female patient presents with a chief complaint of asthma exacerbation. Patient tells me that this has been increasing over the past 48 hours in response to cold. It has been unusually cold over the past few days in spite of it being [place]. She has been coughing and she says this makes it feel like she cannot catch her breath. This triggers her anxiety becomes a vicious cycle. She denies fever, congestion, rhinitis, or sore throat. She has no pedal edema or calf pain. Her chest hurts when she coughs and she does describe post-tussive emesis. She is morbidly obese. She has a ProAir inhaler at home that she uses as needed. She has never had to stay overnight in the hospital her to be intubated for her asthma. She presents with her mom in the ED. She is quite anxious in the ED. She tells me that when she has to have an MRI Valium works better than Ativan but she has only had 1 mg of the latter in the past. Note, the patient was seen in the ED 2 days ago for migraine headache. She did have some nausea and vomiting at that time which was somewhat unusual for her. She also reported having had COVID several weeks ago. Related Data Home Medications Medication Instructions Recorded Confirmed dextroamphetamine-amphetamine 20 30 mg PO DAILY 10/24/14 01/04/23 mg tablet (Adderall) buspirone 15 mg tablet 15 mg PO BID 06/07/17 01/04/23 LOPRESSOR ER 300 mg PO DAILY 08/15/18 01/04/23 magnesium chloride 64 mg 128 mg PO BID 08/15/18 01/04/23 tablet,extended release venlafaxine 150 mg 75 mg PO DAILY 08/15/18 01/04/23 capsule,extended release 24 hr (Effexor XR) levothyroxine 25 mcg tablet 50 mcg PO DAILY 03/21/20 01/04/23 (Synthroid) quetiapine 400 mg tablet (Seroquel) 800 mg PO QHS 03/21/20 01/04/23 promethazine 50 mg tablet 50 mg PO Q6H PRN #30 tab-caps 02/10/21 01/04/23 albuterol sulfate 90 mcg/actuation 2 puff inhalation PRN PRN 01/04/23 01/04/23 aerosol inhaler benzonatate 200 mg capsule 200 mg PO TID PRN cough #9 caps 01/04/23 buspirone 10 mg tablet 10 mg PO DAILY 01/04/23 01/04/23 doxycycline hyclate 100 mg tablet 100 mg PO BID #14 tabs 01/04/23 eptinezumab-jjmr 100 mg/mL 300 mg IV .Q3 MONTHS 01/04/23 01/04/23 intravenous solution (Vyepti) lamotrigine 25 mg tablet 100 mg PO DAILY 01/04/23 01/04/23 omeprazole 40 mg capsule,delayed 40 mg PO DAILY 01/04/23 01/04/23 release prazosin 1 mg capsule 3 mg PO .QHS 01/04/23 01/04/23 prednisone 20 mg tablet 60 mg PO DAILY 4 days #12 tabs 01/04/23 sumatriptan succinate 100 mg tablet See Rx Instructions .Route 01/04/23 01/04/23 .COMPLEX PRN Previous Rx's Medication Instructions Recorded promethazine 50 mg tablet 50 mg PO Q6H PRN #30 tab-caps 02/10/21 benzonatate 200 mg capsule 200 mg PO TID PRN cough #9 caps 01/04/23 doxycycline hyclate 100 mg tablet 100 mg PO BID #14 tabs 01/04/23 prednisone 20 mg tablet 60 mg PO DAILY 4 days #12 tabs 01/04/23 Allergies Allergy/AdvReac Type Severity Reaction Status Date / Time No Known Allergies Allergy Unverified 01/04/23 06:56 General Stated Complaint: RespSymp CLARISA: 3 Review of Systems Constitutional Constitutional: Denies chills, Denies fever(s), Denies headache(s) and Denies weakness Eyes Eyes: Denies diplopia and Reports other (no redness) ENT Ears, Nose, Mouth, and Throat: Denies otalgia, Denies headache(s), Denies nasal congestion, Denies nasal discharge, Denies neck pain and Denies sore throat Cardiovascular Cardiovascular: Denies chest pain, Denies palpitations and Reports dyspnea Respiratory Respiratory: Reports cough, Reports dyspnea and Reports wheezing Gastrointestinal Gastrointestinal: Denies abdominal pain, Denies diarrhea, Denies nausea and Reports vomiting (post tussive) Genitourinary Genitourinary: Denies dysuria Musculoskeletal Musculoskeletal: Denies myalgias, Denies muscle weakness, Denies neck pain, Denies numbness and Reports other (edema) Integumentary/Breasts Skin/Breast: Denies change in pigmentation and Denies rash Neurologic Neurologic: Denies headache(s), Denies numbness and Denies weakness Endocrine Endocrine: Denies palpitations Allergic/Immunologic Allergic/Immunologic: Reports wheezing PFSH All Active Problems (Updated 01/04/23 @ 10:22 by Sb Morton MD) Pneumonia (Acute) Cough (Acute) PTSD (post-traumatic stress disorder) (Acute) Anxiety (Acute 11/06/15) Attention deficit hyperactivity disorder (ADHD), predominantly inattentive type (Acute 11/06/15) BMI 34.0-34.9,adult (Acute 11/06/15) Chronic migraine (Acute 01/22/15) Encounter for contraceptive management, unspecified (Acute 11/06/15) Insomnia, unspecified (Acute 11/06/15) Migraine headache with aura (Acute 01/22/15) Migraine headache without aura (Acute 01/22/15) Tachycardia (Acute 11/06/15) Medical History (Updated 01/04/23 @ 10:22 by Sb Morton MD) ADHD (attention deficit hyperactivity disorder) managed by PCP. Anxiety Bipolar disorder BMI 34.0-34.9,adult wt secondary to Depo Provera. Chronic migraine Contraception Not a candidate for Estrogen containing OCPs. Gained wt on Depo Provera. BTB on Norethindrone. Intoleranct of Mirena. 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 Tobacco use Family History Father No problems noted. Sister Anxiety Social History Smoking/Tobacco Use Status: Current-Occasional Tobacco Type: cigarettes Smoking risk assessment performed?: Yes Alcohol Intake: current Alcohol Intake frequency: holidays/special occasions only Drug use: Never Substance use type: does not use Do you feel safe at home: Yes Do you feel safe in your relationship?: Yes Exam Const General: no acute distress, well developed, well groomed and not in acute distress Nutritional Appearance: well nourished Orientation: alert and oriented x3 HENMT Head: normocephalic and atraumatic Ears: external ears normal Mouth: oropharynx normal and moist mucous membranes Throat: posterior oropharynx normal Eyes Conjunctivae: conjunctivae normal Neck Neck: full ROM and supple Chest Chest: normal inspection of the chest Resp Effort & Inspection: tachypneic Auscultation: wheezes (minor but exacerbated by cough) Cardio Rate: regular rate Rhythm: regular rhythm Heart Sounds: no murmurs and no rubs GI Inspection: normal to inspection Palpation: soft, nontender and other (non distended) Auscultation: normal bowel sounds Skin General skin exam: no rashes or lesions noted and other (pink, warm, dry) Neuro General: patient alert, patient awake and patient oriented x3 Speech: speech normal Motor: other (CHILDS) Sensory Exam: no sensory deficits noted Extrem General: normal to inspection, full ROM and pedal edema present Psych Mental Status: mental status grossly normal Speech and Movement: speech and movement normal Affect: normal affect Course Vital Signs Vital signs: Vital Signs Temperature 37.1 C 01/04/23 06:52 Pulse 126 H 01/04/23 06:52 Respiratory Rate 28 H 01/04/23 06:52 Blood Pressure 126/96 H 01/04/23 06:52 Pulse Oximetry 97 01/04/23 06:52 Temperature 37.1 C 01/04/23 06:52 Temperature Source Temporal Artery Scan 01/04/23 06:52 Pulse 126 H 01/04/23 06:52 Respiratory Rate 28 H 01/04/23 06:52 Respiratory Effort Short of Breath, Labored 01/04/23 07:09 Respiratory Depth Normal 01/04/23 07:09 Blood Pressure 126/96 H 01/04/23 06:52 Blood Pressure Position Sitting 01/04/23 06:52 Pulse Oximetry 97 01/04/23 06:52 Oxygen Delivery Method Room Air 01/04/23 06:52 Oxygen Flow Rate 0 01/04/23 06:52 Pain Level 6 01/04/23 06:52 Sign Out Sign Out Data: Sign Out Comment: 32-year-old morbidly obese patient with multiple medications for migraine prophylaxis and psych. 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 She is her breathing's been picking up the past 2 days due to the cold she is coughing hard enough to initiate off induced emesis. Wheezing with cough. Tachycardia is baseline for her. Getting sublingual Ativan, DuoNeb, prednisone. Chest x-ray and labs pending. Reports having had COVID 19 2 weeks ago. Last updated by Bridgette Stafford MD at 01/04/23 07:58
[2023-01-04] MEDS: predniSONE 20 MG TAB 60 MG PO (07:25)
[2023-01-04] MEDS: LORazepam 1 MG TAB 2 MG PO (07:25)
[2023-01-04] MEDS: Albuterol/Ipratropium 3 ML UPD VIAL UPD (07:26)
--- NOTE | 2023-01-04 07:30 | RT.EKG_ITS ---
APPROVED REPORT Exam: Resting ECG Reason for Exam: SOB, CP with cough Patient Location: E HR:108 bpm ECG Measurements Heart Rate 108 AXIS NH 155 P -7 QRSd 80 QRS 15 QT 326 T 8 QTc 439 Conclusion Sinus tachycardia...rate> 99
[2023-01-04 07:52] LABS: HCT 41.7 % (36.0-46.0); HGB 13.8 g/dL (11.2-15.7); MCH 28.3 pg (27.0-33.0); MCHC 33.1 % (32.0-36.0); MCV 86 fL (80-95); MPV 10.1 fL (8.0-11.0); Platelet Count 330 10^3/uL (130-400); RBC 4.87 10^6/uL (3.93-5.22); RDW 14.6 % (11.7-14.6); RDW-SD 45.1 fL; WBC 15.54 10^3/uL (4.4-10.8)
--- NOTE | 2023-01-04 07:59 | DI.RAD_ITS ---
Exam(s) XR PORTABLE CHEST AP EXAM: XR PORTABLE CHEST AP CLINICAL HISTORY: SOB TECHNIQUE: 2D digital imaging was performed. COMPARISON: 04 June 2021 FINDINGS: Exam is limited by patient body habitus. LUNGS: Clear. No pleural abnormality seen. HEART: Normal size. AORTA: Normal diameter. BONES: Unremarkable for age. Soft tissues: Unremarkable. IMPRESSION: No acute findings. DATA REPOSITORY: RADIATION DOSE DELIVERED:
[2023-01-04 08:12] LABS: Lithium < 0.2 mmol/l (0.6-1.2)
[2023-01-04 08:27] LABS: D-Dimer 421 ng/mlFEU (<500)
[2023-01-04 08:45] LABS: ALT 25 U/L (14-59); AST 16 U/L (15-37); Alkaline Phosphatase 165 U/L (46-116); Anion Gap 15.6 mmol/L (3-11); BUN 10 mg/dL (7-18); Bilirubin, Total 0.4 mg/dL (0.2-1.0); CO2 23.4 mmol/L (21.0-32.0); CREATININE 0.9 mg/dL (0.55-1.02); Calcium 9.7 mg/dL (8.5-10.1); Chloride 100 mmol/L (98-107); Estimated GFR 87.11 (mL/min/1.73m2); Glucose 130 mg/dL (74-106); Potassium 3.8 mmol/L (3.5-5.1); Sodium 139 mmol/L (136-145); TSH 0.81 uIU/mL (0.36-3.74); Total Protein 8.3 g/dL (6.4-8.2)
--- NOTE | 2023-01-04 10:20 | ED.PROG_ITS ---
Date of service: 01/04/23 Time of Service: 10:21 Medical Decision Making xray unremarkable, does have mild increase in anion gap of 15 likely from dehydration, wbc of 15. She feels well and improved after meds, she is speaking in full sentences, has mild apical wheezing. Given her history of reactive airway disease and worsening cough will cover with doxy and start on prednisone, advised to f/u with pcp, return precautions given Sign Out Sign Out Data: Sign Out Comment: 32-year-old morbidly obese patient with multiple medications for migraine prophylaxis and psych. She does have a history of anxiety and col d-induced asthma. She is her breathing's been picking up the past 2 days due to the cold she is coughing hard enough to initiate off induced emesis. Wheezing with cough. Tachycardia is baseline for her. Getting sublingual Ativan, DuoNeb, prednisone. Chest x-ray and labs pending. Reports having had COVID 19 2 weeks ago. Last updated by Bridgette Stafford MD at 01/04/23 07:58 Discharge Plan Disposition Patient Disposition: Home Condition: Stable Discharge Details Clinical Impression: Cough Primary Care Provider: Miriam Krueger ED Provider: Sb Morton Home Meds and New Rx's Prescriptions: New benzonatate 200 mg capsule 200 mg PO TID PRN (Reason: cough) Qty: 9 0RF prednisone 20 mg tablet 60 mg PO DAILY 4 Days Qty: 12 0RF doxycycline hyclate 100 mg tablet 100 mg PO BID Qty: 14 0RF Continued magnesium chloride 64 mg tablet extended release 128 mg PO BID levothyroxine [Synthroid] 25 mcg tablet 50 mcg PO DAILY quetiapine [Seroquel] 400 mg tablet 800 mg PO QHS promethazine 50 mg tablet 50 mg PO Q6H PRN Qty: 30 3RF Rx Instructions: Take PRN for nausea and headaches dextroamphetamine-amphetamine [Adderall] 20 MG tablet 30 mg PO DAILY venlafaxine [Effexor XR] 150 mg capsule,extended release 24hr 75 mg PO DAILY LOPRESSOR ER 300 mg PO DAILY Patient Comments: 11/03/16 per pt. takes 300 mg qd. buspirone 15 MG tablet 15 mg PO BID Patient Comments: 11/30/17 PER PT. TAKES 30-45 MG QD. CANNOT REMEMBER. sumatriptan succinate 100 mg tablet See Rx Instructions .ROUTE .COMPLEX PRN Rx Instructions: Take 1 tab at the onset of a migraine, can repeat in 2 hours, max of 2 tabs in 24 hours. Do not exceed 2 days per week prazosin 1 mg capsule 3 mg PO .QHS Patient Comments: 1 1 capsule by mouth at bedtime for nightmares. can increase to two capsule if tolerated. omeprazole 40 mg capsule,delayed release(DR/EC) 40 mg PO DAILY Patient Comments: TAKE ONE CAPSULE BY MOUTH EVERY DAY lamotrigine 25 mg tablet 100 mg PO DAILY Patient Comments: 2 tabs once a day buspirone 10 mg tablet 10 mg PO DAILY Vyepti 100 mg/mL Solution 300 mg IV .Q3 MONTHS albuterol sulfate 90 mcg/actuation HFA aerosol inhaler 2 puff INHALATION PRN PRN Discharge Instructions Instructions: Acute Cough (ED) Additional Instructions: continue to use your inhalers as needed follow up with your primary care provider within 1 week especially if symptoms continue if you feel more ill, have severe pain or worsening shortness of breath return to the emergency department
== END 2023-01-04 10:36 | disposition home or self-care (01) ==
PROVIDERS: Emergency Medicine; Emergency Provider Emergency Medicine; PCP Nurse Practitioner Family
DX: R05.9 Cough, unspecified (principal); J45.909 Unspecified asthma, uncomplicated
CPT/HCPCS: 36415; 80053; 85027; 93005; 94640; 99284; 71045; 80178; 84443; 85379; 93010; J7512; J7620

== ENCOUNTER 2023-04-16 10:59 | Outpatient (REF) | payer OTHER, SELFPAY ==
[2023-04-16 13:41] LABS: Abs Immature Grans 0.03 10^3/uL (0.0-0.06); Absolute Basophil Count 0.02 10^3/uL (0.0-0.2); Absolute Eosinophil Count 0.03 10^3/uL (0.0-0.7); Absolute Lymphocyte Count 2.15 10^3/uL (1.2-3.4); Absolute Monocyte Count 0.52 10^3/uL (0.1-0.8); Absolute Neutrophil Count 3.46 10^3/uL (1.2-6.7); Basophils % 0.3; Eosinophils % 0.5; HCT 35.1 % (36.0-46.0); HGB 11.4 g/dL (11.2-15.7); Immature Grans % 0.5; Lymphocytes % 34.6; MCH 28.6 pg (27.0-33.0); MCHC 32.5 % (32.0-36.0); MCV 88 fL (80-95); Monocytes % 8.4; Neutrophils % 55.7; Platelet Count 372 10^3/uL (130-400); RBC 3.99 10^6/uL (3.93-5.22); RDW 16.2 % (11.7-14.6); RDW-SD 52.6 fL; WBC 6.21 10^3/uL (4.4-10.8)
[2023-04-16 14:03] LABS: Hemoglobin A1C 5.7 % (<5.7)
[2023-04-16 14:18] LABS: Vitamin D 25 Total 10.8 ng/mL (30-100)
[2023-04-16 14:33] LABS: ALT 23 U/L (14-59); AST 13 U/L (15-37); Albumin 3.9 g/dL (3.4-5.0); Alkaline Phosphatase 133 U/L (46-116); Anion Gap 10.9 mmol/L (3-11); BUN 13 mg/dL (7-18); Bilirubin, Total 0.2 mg/dL (0.2-1.0); CO2 24.1 mmol/L (21.0-32.0); CREATININE 0.8 mg/dL (0.55-1.02); Calcium 9.1 mg/dL (8.5-10.1); Calculated LDL 113 mg/dL (<100); Chloride 102 mmol/L (98-107); Cholesterol 190 mg/dL (<200); Estimated GFR 100.33 (mL/min/1.73m2); Glucose 90 mg/dL (74-106); HDL Cholesterol 48 mg/dL (40-60); Sodium 137 mmol/L (136-145); Total Protein 7.1 g/dL (6.4-8.2); Triglyceride 147 mg/dL (<150); Vitamin B12 455 pg/mL (193-986)
[2023-04-19 13:38] LABS: Total Protein 6.7 g/dL (6.3-8.2)
== END 2023-04-16 11:00 | disposition home or self-care (01) ==
LOC: NCHCN 10:59
PROVIDERS: PCP Nurse Practitioner Family; Visit Provider Nurse Practitioner Family
DX: R79.89 Other specified abnormal findings of blood chemistry (principal); R74.8 Abnormal levels of other serum enzymes; R73.9 Hyperglycemia, unspecified; D72.829 Elevated white blood cell count, unspecified; J45.20 Mild intermittent asthma, uncomplicated; F31.62 Bipolar disorder, current episode mixed, moderate; E66.9 Obesity, unspecified
CPT/HCPCS: 80053; 80061; 82306; 82607; 83036; 83735; 84165; 85025

== ENCOUNTER 2023-08-16 15:22 | Emergency (ER) | payer BC, SELFPAY ==
[2023-08-16 15:28] VITALS: BP 110/82; PULSE 110; RESP 18; TEMP 36.6; O2SAT 98
--- NOTE | 2023-08-16 15:30 | DI.RAD_ITS ---
Exam(s) XR FEMUR RT EXAM: XR FEMUR RT CLINICAL HISTORY: EVAL FB. TECHNIQUE: 2D digital imaging was performed. COMPARISON: No exams were available for comparison FINDINGS: Two views. No evidence of fracture nor dislocation. Bone density normal. No osseous lesions. No radiopaque me tallic foreign body evident. Visualized knee appears unremarkable and no evidence of knee joint effusion. IMPRESSION: No significant osseous findings. DATA REPOSITORY: RADIATION DOSE DELIVERED:
[2023-08-16 16:10] VITALS: BP 143/93; PULSE 109; RESP 16; O2SAT 94
--- NOTE | 2023-08-16 16:10 | ED.GENADUL_ITS ---
HPI General Date/Time Provider Initiated Documentation: 08/16/23 15:43 . Limitations to Documentation: no limitations . Information obtained by: patient . HPI Narrative: 33-year-old female with past medical history of PTSD, migraines, obesity presents for evaluation of right thigh pain. Over a week ago she was bit by her own dog. She states that she was breaking up a fight between her 2 dogs. She was evaluated at urgent care and started on Augmentin. She is concerned that she is still having persistent draining from her leg. No increased redness or swelling. Drainage is pinkish clear. No fever. She is currently on day 4 of Augmentin. Related Data Home Medications Medication Instructions Recorded Confirmed dextroamphetamine-amphetamine 20 30 mg PO DAILY 10/24/14 08/16/23 mg tablet (Adderall) buspirone 15 mg tablet 15 mg PO BID 06/07/17 08/16/23 LOPRESSOR ER 300 mg PO DAILY 08/15/18 08/16/23 magnesium chloride 64 mg 128 mg PO BID 08/15/18 08/16/23 tablet,extended release levothyroxine 25 mcg tablet 50 mcg PO DAILY 03/21/20 08/16/23 (Synthroid) quetiapine 400 mg tablet (Seroquel) 800 mg PO QHS 03/21/20 08/16/23 promethazine 50 mg tablet 50 mg PO Q6H PRN #30 tab-caps 02/10/21 08/16/23 albuterol sulfate 90 mcg/actuation 2 puff inhalation PRN PRN 01/04/23 08/16/23 aerosol inhaler buspirone 10 mg tablet 15 mg PO BID 01/04/23 08/16/23 lamotrigine 25 mg tablet 175 mg PO DAILY 01/04/23 08/16/23 omeprazole 40 mg capsule,delayed 40 mg PO DAILY 01/04/23 08/16/23 release prazosin 1 mg capsule 3 mg PO .QHS 01/04/23 08/16/23 sumatriptan succinate 100 mg tablet See Rx Instructions .Route 01/04/23 08/16/23 .COMPLEX PRN amoxicillin 875 mg-potassium tab 08/16/23 clavulanate 125 mg tablet atogepant 60 mg tablet (Qulipta) 60 mg PO DAILY 08/16/23 08/16/23 semaglutide 0.25 mg or 0.5 mg (2 1 mg subcut QWEEK 08/16/23 08/16/23 mg/3 mL) subcutaneous pen injector (Ozempic) Previous Rx's Medication Instructions Recorded promethazine 50 mg tablet 50 mg PO Q6H PRN #30 tab-caps 02/10/21 Allergies Allergy/AdvReac Type Severity Reaction Status Date / Time No Known Allergies Allergy Unverified 01/04/23 06:56 General Stated Complaint: AnimalBite CLARISA: 3 Exam Narrative Exam Narrative: Review of Systems: All systems reviewed & are unremarkable except as noted in HPI and below Well-developed, no acute distress NCAT PERRL, normal conjunctiva RRR Unlabored respiratory effort Nondistended abdomen Right thigh with 4 x 4 area of ecchymosis, there is a 1 cm wound that is scabbed over and a more lateral 2 cm wound that is open with granulation tissue on palpation this area will drain serosanguineous fluid, not particularly tender to palpation. On bedside ultrasound I am able to see a wound track and possibly a sliver of a small foreign body at the base of this wound No rashes or lesions. no focal neurologic deficits Appropriate mood and affect Course Vital Signs Vital signs: Vital Signs Temperature 36.6 C 08/16/23 15:28 Pulse 110 H 08/16/23 15:28 Respiratory Rate 18 08/16/23 15:28 Blood Pressure 110/82 08/16/23 15:28 Pulse Oximetry 98 08/16/23 15:28 Temperature 36.6 C 08/16/23 15:28 Temperature Source Oral 08/16/23 15:28 Pulse 109 H 08/16/23 16:10 Respiratory Rate 16 08/16/23 16:10 Respiratory Effort Normal 08/16/23 15:44 Blood Pressure 143/93 H 08/16/23 16:10 Blood Pressure Position Sitting 08/16/23 15:28 Pulse Oximetry 94 08/16/23 16:10 Oxygen Delivery Method Room Air 08/16/23 15:28 Oxygen Flow Rate 0 08/16/23 15:28 Medical Decision Making Emergent evaluation of dog bite. Wound is not acute. Is currently on antibiotics. External wound appears to be healing appropriately. She does have a fairly significant wound track and a good amount of drainage from the more lateral bite. I am suspicious that there is retained foreign body, possibly a small piece of tooth that is embedded within the wound. This would not be amenable to foreign body retrieval and that would only cause more damage to the patient. X-ray obtained and there does not appear to be anything on the x-ray. Recommended local wound care, soaks, warm compress, continued antibiotics and strict return precautions advised. Medical Records Medical records reviewed: Yes I reviewed the patient's medical records. Quality:SDOH Health Related Social Needs: No Data to Display PFSH All Active Problems Dog bite of right thigh (Acute) Pneumonia (Acute) Cough (Acute) PTSD (post-traumatic stress disorder) (Acute) Anxiety (Acute 11/06/15) Attention deficit hyperactivity disorder (ADHD), predominantly inattentive type (Acute 11/06/15) BMI 34.0-34.9,adult (Acute 11/06/15) Chronic migraine (Acute 01/22/15) Encounter for contraceptive management, unspecified (Acute 11/06/15) Insomnia, unspecified (Acute 11/06/15) Migraine headache with aura (Acute 01/22/15) Migraine headache without aura (Acute 01/22/15) Tachycardia (Acute 11/06/15) Medical History Bipolar disorder Tobacco use BMI 34.0-34.9,adult wt secondary to Depo Provera. Contraception Not a candidate for Estrogen containing OCPs. Gained wt on Depo Provera. BTB on Norethindrone. Intoleranct of Mirena. Anxiety ADHD (attention deficit hyperactivity disorder) managed by PCP. 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 Family History Father No problems noted. Sister Anxiety Social History Smoking/Tobacco Use Status: Current-Occasional Tobacco Type: cigarettes Smoking risk assessment performed?: Yes Alcohol Intake: current Alcohol Intake frequency: holidays/special occasions only Drug use: Never Substance use type: does not use Do you feel safe at home: Yes Do you feel safe in your relationship?: Yes PAWSS Have you Been Recently Intoxicated or Drunk Within the Last 30 days?: No Have you Ever Experienced Previous Episodes of Alcohol Withdrawal?: No Have you ever Experienced Withdrawal Seizures?: No Have you ever Experienced Delirium Tremens(DT)s?: No Have you ever undergone Alcohol Rehabilitation Treatment (i.e, inpt ot outpatient treatment programs)?: No Have you ever Experienced Blackouts?: No Have you ever Combined Alcohol with other Downers within the last 90 days?: No Have you ever Combined Alcohol with any other Substance of Abuse during the last 90 days?: No Positive Blood Alcohol level on Presentation? [PCS.BAL]: No Evidence of Increased Autonomic Activity (i.e. HR>120, tremor, sweating, agitation, nausea)?: No Result: 0 Discharge Plan Disposition Patient Disposition: Home Discharge Details Clinical Impression: Dog bite of right thigh Primary Care Provider: Miriam Krueger ED Provider: Chayito Batista Home Meds and New Rx's Prescriptions: No Action magnesium chloride 64 mg tablet extended release 128 mg PO BID levothyroxine [Synthroid] 25 mcg tablet 50 mcg PO DAILY quetiapine [Seroquel] 400 mg tablet 800 mg PO QHS promethazine 50 mg tablet 50 mg PO Q6H PRN Qty: 30 3RF Rx Instructions: Take PRN for nausea and headaches dextroamphetamine-amphetamine [Adderall] 20 MG tablet 30 mg PO DAILY LOPRESSOR ER 300 mg PO DAILY Patient Comments: 11/03/16 per pt. takes 300 mg qd. buspirone 15 MG tablet 15 mg PO BID Patient Comments: 11/30/17 PER PT. TAKES 30-45 MG QD. CANNOT REMEMBER. sumatriptan succinate 100 mg tablet See Rx Instructions .ROUTE .COMPLEX PRN Rx Instructions: Take 1 tab at the onset of a migraine, can repeat in 2 hours, max of 2 tabs in 24 hours. Do not exceed 2 days per week prazosin 1 mg capsule 3 mg PO .QHS Patient Comments: 1 1 capsule by mouth at bedtime for nightmares. can increase to two capsule if tolerated. omeprazole 40 mg capsule,delayed release(DR/EC) 40 mg PO DAILY Patient Comments: TAKE ONE CAPSULE BY MOUTH EVERY DAY lamotrigine 25 mg tablet 175 mg PO DAILY Patient Comments: 2 tabs once a day buspirone 10 mg tablet 15 mg PO BID albuterol sulfate 90 mcg/actuation HFA aerosol inhaler 2 puff INHALATION PRN PRN amoxicillin-pot clavulanate 875-125 mg tablet Ozempic 0.25 mg or 0.5 mg (2 mg/3 mL) pen injector 1 mg subcut QWEEK Qulipta 60 mg tablet 60 mg PO DAILY Discharge Instructions Instructions: Animal Bite (ED) Additional Instructions: Continue Augmentin as prescribed Monitor symptoms. Return with worsening redness, swelling, drainage or fever Encourage drainage of the area and warm compress will help with this
== END 2023-08-16 16:09 | disposition home or self-care (01) ==
LOC: ER 16:21
PROVIDERS: Emergency Provider Emergency Medicine; PCP Nurse Practitioner Family
DX: S70.371D Other superficial bite of right thigh, subsequent encounter (principal); W54.0XXD Bitten by dog, subsequent encounter
CPT/HCPCS: 73552; 99284; 99282

== ENCOUNTER 2024-05-02 03:38 | Emergency (ER) | payer BC, SELFPAY ==
[2024-05-02 03:40] VITALS: BP 143/79; PULSE 117; RESP 16; TEMP 36.6; O2SAT 98
[2024-05-02] MEDS: diphenhydrAMINE 50 MG/ML VIAL 25 MG IVP (04:06)
[2024-05-02] MEDS: Droperidol 5 MG/2 ML VIAL 2.5 MG IVP (04:06)
[2024-05-02] MEDS: Ketorolac 15 MG/ML VIAL IVP (04:06)
[2024-05-02] MEDS: Normal Saline 1,000 ML 1000 ML IV (04:08)
[2024-05-02] MEDS: ACETAMINOPHEN 1,000 MG/100 ML BAG 400 MG IVPB (04:12)
--- NOTE | 2024-05-02 04:42 | ED.GENADUL_ITS ---
Discharge Plan Disposition Patient Disposition: Home Condition: Improving Discharge Details Clinical Impression: Headache Primary Care Provider: Miriam Krueger ED Provider: Vanessa Fofana Home Meds and New Rx's Prescriptions: Continued magnesium chloride 64 mg tablet extended release 128 mg PO BID levothyroxine [Synthroid] 25 mcg tablet 50 mcg PO DAILY quetiapine [Seroquel] 400 mg tablet 800 mg PO QHS promethazine 50 mg tablet 50 mg PO Q6H PRN Qty: 30 3RF Rx Instructions: Take PRN for nausea and headaches dextroamphetamine-amphetamine [Adderall] 20 MG tablet 30 mg PO DAILY LOPRESSOR ER 300 mg PO DAILY Patient Comments: 11/03/16 per pt. takes 300 mg qd. buspirone 15 MG tablet 15 mg PO BID Patient Comments: 11/30/17 PER PT. TAKES 30-45 MG QD. CANNOT REMEMBER. sumatriptan succinate 100 mg tablet See Rx Instructions .ROUTE .COMPLEX PRN Rx Instructions: Take 1 tab at the onset of a migraine, can repeat in 2 hours, max of 2 tabs in 24 hours. Do not exceed 2 days per week prazosin 1 mg capsule 3 mg PO .QHS Patient Comments: 1 1 capsule by mouth at bedtime for nightmares. can increase to two capsule if tolerated. omeprazole 40 mg capsule,delayed release(DR/EC) 40 mg PO DAILY Patient Comments: TAKE ONE CAPSULE BY MOUTH EVERY DAY lamotrigine 25 mg tablet 175 mg PO DAILY Patient Comments: 2 tabs once a day buspirone 10 mg tablet 15 mg PO BID albuterol sulfate 90 mcg/actuation HFA aerosol inhaler 2 puff INHALATION PRN PRN Ozempic 0.25 mg or 0.5 mg (2 mg/3 mL) pen injector 1 mg subcut QWEEK Qulipta 60 mg tablet 60 mg PO DAILY ondansetron 4 mg tablet,disintegrating 4 mg translingual ONCE PRN lamotrigine 100 mg tablet 100 mg PO ONCE triamcinolone acetonide 0.1 % cream 1 applic TOPICAL ONCE Discharge Instructions Instructions: Headache, Adult ED Additional Instructions: Keep your appointment with your neurologist tomorrow. Return to the emergency department for new or worsening symptoms including new/different/worse headache, numbness, weakness, vertigo, fever, or if you change your mind and would like further treatment. Referrals: Miriam Krueger [Primary Care Provider] - [facility] General Mode of arrival: ambulatory . Date/Time Provider Initiated Documentation: 05/02/24 03:44 . Limitations to Documentation: no limitations . Information obtained by: patient . HPI Narrative: 33yo F with hx migraines presenting for headache. States headache for the past 3 days, typically of her usual migraine. Frontal, severe, associated nausea and vomiting. Not maximal at onset. non positional. Tried promethazine and zofran ant home without improvement. Has appt with her neurologist for today for botox. No fevers, chills, or neck pain. No numbness, tingling, weakness, or vertigo. Otherwise in her usual state of health. Related Data Home Medications ?Medication ?Instructions ?Recorded ?Confirmed dextroamphetamine-amphetamine 20 30 mg PO DAILY 10/24/14 05/02/24 mg tablet (Adderall) buspirone 15 mg tablet 15 mg PO BID 06/07/17 05/02/24 LOPRESSOR ER 300 mg PO DAILY 08/15/18 05/02/24 magnesium chloride 64 mg 128 mg PO BID 08/15/18 05/02/24 tablet,extended release levothyroxine 25 mcg tablet 50 mcg PO DAILY 03/21/20 05/02/24 (Synthroid) quetiapine 400 mg tablet (Seroquel) 800 mg PO QHS 03/21/20 05/02/24 promethazine 50 mg tablet 50 mg PO Q6H PRN #30 tab-caps 02/10/21 05/02/24 albuterol sulfate 90 mcg/actuation 2 puff inhalation PRN PRN 01/04/23 05/02/24 aerosol inhaler buspirone 10 mg tablet 15 mg PO BID 01/04/23 05/02/24 lamotrigine 25 mg tablet 175 mg PO DAILY 01/04/23 05/02/24 omeprazole 40 mg capsule,delayed 40 mg PO DAILY 01/04/23 05/02/24 release prazosin 1 mg capsule 3 mg PO .QHS 01/04/23 05/02/24 sumatriptan succinate 100 mg tablet See Rx Instructions .Route 01/04/23 05/02/24 .COMPLEX PRN atogepant 60 mg tablet (Qulipta) 60 mg PO DAILY 08/16/23 05/02/24 semaglutide 0.25 mg or 0.5 mg (2 1 mg subcut QWEEK 08/16/23 05/02/24 mg/3 mL) subcutaneous pen injector (Netviewer) lamotrigine 100 mg tablet 100 mg PO ONCE 05/02/24 05/02/24 ondansetron 4 mg disintegrating 4 mg translingual ONCE PRN 05/02/24 05/02/24 tablet triamcinolone acetonide 0.1 % 1 applic topical ONCE 05/02/24 05/02/24 topical cream Previous Rx's ?Medication ?Instructions ?Recorded promethazine 50 mg tablet 50 mg PO Q6H PRN #30 tab-caps 02/10/21 Allergies Allergy/AdvReac Type Severity Reaction Status Date / Time No Known Allergies Allergy Verified 05/02/24 03:48 General Stated Complaint: Headache CLARISA: 4 Review of Systems Narrative: see HPI Exam Narrative Exam Narrative: General: Alert, well appearing, well nourished Head: Normocephalic, atraumatic Neck: Trachea midline, ?Neck supple. No nuchal rigidity ENT: ?MMM.? No oropharygeal lesions or exudate. Cardiac: ?RRR, no murmurs appreciated Resp: No respiratory distress. CTAB. Abd: ?Non-distended Extremities: ?No deformities.? No peripheral edema. Neuro: ? GCS 15.? PERRL.? EOMI.? Fluent speech, no dysarthria. Motor- 5/5 strength symmetric bilateral upper and lower extremities Sensation- ?Intact to light touch and symmetric multiple dermatomes including upper and lower extremities Coordination- No dysmetria on finger to nose Gait/station: ?Normal stance.? No truncal ataxia. Steady gait with equal normal steps CRANIAL NERVES: II: Pupils equal and reactive, III, IV, : EOM intact, no gaze preference or deviation, no nystagmus. V: normal sensation in V1, V2, and V3 segments bilaterally VII: no asymmetry, no nasolabial fold flattening VIII: normal hearing to speech IX, X: normal palatal elevation, no uvular deviation XI: 5/5 head turn and 5/5 shoulder shrug bilaterally XII: midline tongue protrusion Course Vital Signs Vital signs: Vital Signs Temperature 36.6 C 05/02/24 03:40 Pulse 117 H 05/02/24 03:40 Respiratory Rate 16 05/02/24 03:40 Blood Pressure 143/79 H 05/02/24 03:40 Pulse Oximetry 98 05/02/24 03:40 Temperature 36.6 C 05/02/24 03:40 Temperature Source Temporal Artery Scan 05/02/24 03:40 Pulse 117 H 05/02/24 03:40 Respiratory Rate 16 05/02/24 03:40 Respiratory Effort Normal 05/02/24 03:54 Blood Pressure 143/79 H 05/02/24 03:40 Blood Pressure Position Sitting 05/02/24 03:40 Pulse Oximetry 98 05/02/24 03:40 Oxygen Delivery Method Room Air 05/02/24 03:40 Oxygen Flow Rate 0 05/02/24 03:40 Pain Level 10 05/02/24 03:40 Medical Decision Making 33yo F with hx migraines presenting for headache. States headache for the past 3 days, typically of her usual migraine. Now up to 10/10 in severity. Not maximal at onset. Slightly tachycardiac on arrival, vital signs otherwise reassuring. Normal neurologic exam. History and exam reassuring against meningitis, SAH, CVST, intracranial mass; would not get labs or CT imaging at t his time. Will treat with IVFB, tylenol, toradol, droperidol, Benadryl. Pt requests morphine and states this is what usually works for her; I advised her that morphine is typically counter-productive with CHEEMA and can cause significant rebound, would not be prescribing here today. On reassessment pt reports mild improvement, 02/25. Again requests morphine. I advised her that my 2nd line treatments would be steroids and magnesium; she stated that if she was not able to get morphine she would prefer to 'just go home'. Does have an appointment scheduled with her neurologist for tomorrow. Discharged home; discharge instructions and return precautions were reviewed with patient who verbalized understanding. All questions were answered and she is in full agreement with the plan. Quality:SDOH Health Related Social Needs: No Data to Display PFSH All Active Problems (Updated 05/02/24 @ 06:10 by Vanessa Fofana MD) Headache (Acute) Pneumonia (Acute) Cough (Acute) PTSD (post-traumatic stress disorder) (Acute) Anxiety (Acute 11/06/15) Attention deficit hyperactivity disorder (ADHD), predominantly inattentive type (Acute 11/06/15) BMI 34.0-34.9,adult (Acute 11/06/15) Chronic migraine (Acute 01/22/15) Encounter for contraceptive management, unspecified (Acute 11/06/15) Insomnia, unspecified (Acute 11/06/15) Migraine headache with aura (Acute 01/22/15) Migraine headache without aura (Acute 01/22/15) Tachycardia (Acute 11/06/15) Medical History Bipolar disorder Tobacco use BMI 34.0-34.9,adult wt secondary to Depo Provera. Contraception Not a candidate for Estrogen containing OCPs. Gained wt on Depo Provera. BTB on Norethindrone. Intoleranct of Mirena. Anxiety ADHD (attention deficit hyperactivity disorder) managed by PCP. 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 Family History Father No problems noted. Sister Anxiety Social History Smoking/Tobacco Use Status: Current-Occasional Tobacco Type: cigarettes Smoking risk assessment performed?: Yes Alcohol Intake: current Alcohol Intake frequency: holidays/special occasions only Drug use: Never Substance use type: does not use Do you feel safe at home: Yes Do you feel safe in your relationship?: Yes
[2024-05-02 05:50] VITALS: BP 104/70; PULSE 89; RESP 14; TEMP 36.7; O2SAT 99
== END 2024-05-02 06:15 | disposition home or self-care (01) ==
LOC: ER 06:18
PROVIDERS: Emergency Provider Student in an Organized Health Care Education/Training Program; PCP Nurse Practitioner Family
DX: R51.9 Headache, unspecified (principal); F17.210 Nicotine dependence, cigarettes, uncomplicated
CPT/HCPCS: 36415; 96365; 96375; 99284; 99285; 99283; J0131; J1200; J1790; J1885

== ENCOUNTER 2024-05-16 22:42 | Outpatient (REF) | payer BC, SELFPAY ==
[2024-05-16 21:18] LABS: Hemoglobin A1C 5.4 % (<5.7)
[2024-05-16 21:55] LABS: ALT 23 U/L (14-59); AST 15 U/L (15-37); Albumin 4.3 g/dL (3.4-5.0); Alkaline Phosphatase 105 U/L (46-116); BUN 8 mg/dL (7-18); Bilirubin, Total 0.33 mg/dL (0.2-1.0); CREATININE 0.9 mg/dL (0.55-1.02); Calcium 9.8 mg/dL (8.5-10.1); Calculated LDL 138 mg/dL (<100); Chloride 104 mmol/L (98-107); Cholesterol 241 mg/dL (<200); Estimated GFR 86.03 (mL/min/1.73m2); Glucose 95 mg/dL (74-106); HDL Cholesterol 65 mg/dL (40-60); Magnesium 2.5 mg/dL (1.8-2.4); Potassium 4.8 mmol/L (3.5-5.1); Sodium 140 mmol/L (136-145); TSH (W/Ref FT4) 1.26 uIU/mL (0.36-3.74); Total Protein 7.7 g/dL (6.4-8.2); Triglyceride 194 mg/dL (<150); Vitamin B12 363 pg/mL (193-986); Vitamin D 25 Total 21.8 ng/mL (30-100)
== END 2024-05-16 22:43 | disposition home or self-care (01) ==
LOC: NCHCN 22:42
PROVIDERS: PCP Nurse Practitioner Family; Visit Provider Nurse Practitioner Family
DX: E78.5 Hyperlipidemia, unspecified (principal); E66.9 Obesity, unspecified; K30 Functional dyspepsia; E55.9 Vitamin D deficiency, unspecified; E23.7 Disorder of pituitary gland, unspecified
CPT/HCPCS: 80053; 80061; 82306; 82607; 83036; 83735; 84443